=== PATIENT | male | born 1995 | race African-American/Black ===

== ENCOUNTER 2023-01-30 23:35 | Emergency (ER) | payer OTHER ==
[~2023-01-30] VITALS: Ht 180.3 cm; Wt 84.2 kg
[2023-01-31 00:13] VITALS: BP 143/77; PULSE 68; RESP 18; TEMP 97.9; O2SAT 100
[2023-01-31] MEDS ORDERED: TOPUD MT (03:33)
[2023-01-31] MEDS ORDERED: IBUP-1525 MT (03:33)
== END 2023-01-31 03:56 | disposition home or self-care (01) ==
LOC: ER 23:35
DX: S16.1XXA Strain of muscle, fascia and tendon at neck level, initial encounter (principal); V49.49XA Driver injured in collision with other motor vehicles in traffic accident, initial encounter; Y93.89 Activity, other specified; Y92.89 Other specified places as the place of occurrence of the external cause; Y99.8 Other external cause status
CPT/HCPCS: 72040; 99283